=== PATIENT | male | born 1965 | race Caucasian/White ===

== ENCOUNTER 2022-06-17 17:08 | Observation (INO) | payer MEDICARE ==
--- NOTE | 2022-06-17 17:43 | ERPHSYRPT ---
- History of Present Illness Source: patient Exam Limitations: no limitations Patient Subjective Stated Complaint: pt here for a left ankle injury, hes states the ladder gave way and he landed on feet,form about 6 foot, Triage Nursing Assessment: pt alert, resp easy, skin w/d/p.iv to left ac, had pain meds in ambulance. skin w/d/p, eat last at 1430. has deformity to left ankle , strong pedal pulse, nailbeds pink Method of Injury: fell, twisted Occurred: just prior to arrival Quality: throbbing Severity of Pain-Max: severe Severity of Pain-Current: mild Lower Extremities Pain: ankle: left (Swelling and deformity of the left ankle neurovascular tendon are intact) Hx Tetanus, Diphtheria Vaccination/Date Given: No Hx Influenza Vaccination/Date Given: No Hx Pneumococcal Vaccination/Date Given: No Immunizations Up to Date: Yes <MADDY RAO - Last Filed: 06/17/22 18:41> <ARIANNE BAH - Last Filed: 06/17/22 22:40> - History of Present Illness Time Seen by Provider: 06/17/22 17:25 Physician History: Patient is a 56-year-old white male who was on a approximately 10 foot ladder when he fell off and landed on both feet causing his left ankle to twist and invert. He was given 200 mcg of fentanyl I V by EMS for his pain. He denies any other pain or loss of consciousness. Later during his exam he did complain of some low back pain which has been chronic with him. His is encouraging him to have a CT of his lumbar spine. (MADDY RAO) Allergies/Adverse Reactions: carisoprodol [From Soma] Allergy (Verified 06/17/22 17:13) morphine Allergy (Verified 06/17/22 17:13) Home Medications: Amlodipine Besylate 5 mg [Norvasc 5 mg] 5 mg PO DAILY 06/17/22 [History] Gabapentin 800 mg PO QID 06/17/22 [History] Lovastatin [Altoprev] 40 mg PO DAILY 06/17/22 [History] Metformin HCl 500 mg [Glucophage 500 MG] 500 mg PO BIDWM 06/17/22 [Hi story] Metoprolol Succinate 50 mg [Toprol Xl 50 MG] 50 mg PO DAILY 06/17/22 [History] Nortriptyline HCl [Pamelor] 50 mg PO DAILY 06/17/22 [History] Orphenadrine Citrate 100 mg [Norflex 100 MG Tablet] 1 ea DAILY 06/17/22 [History] Travel Risk - International Travel Have you traveled outside of the country in past 3 weeks: No - Coronavirus Screening Are you exhibiting any of the following symptoms?: No Close contact with a COVID-19 positive Pt in past 14-21 Days: No - Vaccine Status Have you recieved a Covid-19 vaccination: Yes [employer] Products: Moderna - Vaccination Dates Date of 2cond Vaccination (if applicable): 2020 <MADDY RAO - Last Filed: 06/17/22 18:41> - Review of Systems Constitutional: No Fever, No Chills Eyes: No Symptoms Ears, Nose, & Throat: No Symptoms Respiratory: No Cough, No Dyspnea Cardiac: No Chest Pain, No Edema, No Syncope Abdominal/Gastrointestinal: No Abdominal Pain, No Nausea, No Vomiting, No Diarrhea Genitourinary Symptoms: No Dysuria Musculoskeletal: No Back Pain, No Neck Pain Skin: No Rash Neurological: No Dizziness, No Focal Weakness, No Sensory Changes Psychological: No Symptoms Endocrine: No Symptoms All Other Systems: Reviewed and Negative <MADDY RAO - Last Filed: 06/17/22 18:41> - Past Medical History Pertinent Past Medical History: Yes Cardiac History: Hypertension Endocrine Medical History: Diabetes Type II - Past Surgical History Past Surgical History: Yes Musculoskeletal: Orthopedic Surgery Other Surgical History: back surgery - Social History Smoking Status: Never smoker Exposure to second hand smoke: No Drug Use: none Patient Lives Alone: No <MADDY RAO - Last Filed: 06/17/22 18:41> - Physical Exam General Appearance: mild distress Eyes, Ears, Nose, Throat Exam: moist mucous membranes Neck Exam: non-tender, supple Cardiovascular/Respiratory Exam: chest non-tender, normal breath sounds, regular rate/rhythm, no respiratory distress Gastrointestinal/Abdominal Exam: non-tender, guarding Back Exam: normal inspection, No vertebral tenderness Hips Exam: bilateral: non-tender, normal inspection, normal range of motion Legs Exam: bilateral leg: non-tender, normal inspection, normal range of motion Knees Exam: bilateral knee: non-tender, normal inspection, normal range of motion Ankle Exam: left ankle: bone tenderness, deformity, joint effusion, limited range of motion, pain, soft tissue tenderness, swelling Foot Exam: bilateral foot: non-tender, normal inspection, normal range of mo tion, no evidence of injury Neuro/Tendon Exam: normal sensation, normal motor functions, no evidence tendon injury Mental Status Exam: alert, oriented x 3, cooperative Skin Exam: normal color, warm, dry SpO2 Interpretation: normal SpO2: 94 O2 Delivery: Room Air <MADDY RAO Last Filed: 06/17/22 18:41> - Nursing Vital Signs Nursing Vital Signs: Initial Vital Signs Temperature 97.2 F 06/17/22 17:16 Pulse Rate 84 06/17/22 17:16 Respiratory Rate 18 06/17/22 17:16 Blood Pressure 131/110 06/17/22 17:16 O2 Sat by Pulse Oximetry 94 L 06/17/22 17:16 Pain Scale Pain Intensity 8 Procedures - Splinting Time of Procedure: 17:42 Location of Splint: Left, Ankle Type of Splint: Orthoglass Short Arm Splint Splint Applied By: ED Physician Pre-Proc Neuro Vasc Exam: normal Post-Proc Neuro Vasc Exam: neurovascular intact <MADDY RAO Last Filed: 06/17/22 18:41> - Course Nursing assessment & vital signs reviewed: Yes - Radiology Exams Left Ankle X-ray Interpretation: Interpreted by me (There is a fracture and displacement of the medial malleolus and there is a longitudinal splintering and can become mutation in the distal fibula the ankle mortise is disrupted.) <MADDY RAO Last Filed: 06/17/22 18:41> Ordered Tests: Active Orders 24 hr Category Date Time Status Bedrest ROUTINE Activity 06/17/22 21:55 Active Code Status Order ROUTINE Care 06/17/22 21:55 Active IV Care Q6H Care 06/17/22 21:55 Active Neuro Checks Q4H Care 06/17/22 21:[address] in Observation ROUTINE Care 06/17/22 21:55 Active Telemetry q6h Care 06/17/22 21:55 Active NPO Diet 06/17/22 21:56 Active ANKLE (3 VIEWS) Stat Exams 06/17/22 17:13 Taken LOWER EXTREMITY WO CONTRAST [CT] Stat Exams 06/17/22 17:36 Taken LUMBAR SPINE W/O [CT] Stat Exams 06/17/22 18:39 Taken CBC W DIFF AM.LAB Lab 06/18/22 04:00 Ordered CBC W DIFF Stat Lab 06/17/22 21:34 Completed CMP AM.LAB Lab 06/18/22 04:00 Ordered CMP Stat Lab 06/17/22 21:34 Completed UA W/RFX CULTURE Stat Lab 06/17/22 Ordered Pulse Oximetry CONTINUOUS RT 06/17/22 21:55 Active Transfer Order Routine Transfer 06/17/22 Completed Medication Summary Generic Name Dose Route Start Last Admin Trade Name Gunjan PRN Reason Stop Dose Admin Hydromorphone HCl 0.5 mg 06/17/22 21:55 Hydromorphone 1 Mg/1ml Inj 1 Mg/Ml Syringe IV 06/22/22 21:54 Q4H PRN PRN PAIN Sodium Chloride 1,000 mls @ 100 mls/hr 06/17/22 21:55 Sodium Chloride 0.9% 1000 Ml IV 07/17/22 21:54 .Q10H JASON Cefazolin Sodium/Dextrose 1 gm in 50 mls @ 100 mls/hr 06/17/22 22:00 Kefzol 1 Gm/50 Ml Premix IV 06/20/22 21:59 Q8HT JASON Ondansetron HCl 4 mg 06/17/22 21:55 Ondansetron Hcl 4 Mg/2 Ml Vial IV 07/17/22 21:54 Q6H PRN PRN NAUSEA/VOMITING Discontinued Medications Generic Name Dose Route Start Last Admin Trade Name Gunjan PRN Reason Stop Dose Admin Fentanyl Citrate 50 mcg 06/17/22 17:49 06/17/22 17:56 Fentanyl Citrate 100 Mcg/2 Ml* Vial IV 06/17/22 17:50 50 mcg STAT ONE Administration Fentanyl Citrate Confirm 06/17/22 17:55 Fentanyl Citrate 100 Mcg/2 Ml* Vial Administered 06/17/22 17:56 Dose 100 mcg .ROUTE .STK-MED ONE Hydromorphone HCl 0.5 mg 06/17/22 21:09 06/17/22 21:15 Hydromorphone 1 Mg/1ml Inj 1 Mg/Ml Syringe IV 06/17/22 21:10 0.5 mg STAT ONE Administration Hydromorphone HCl Confirm 06/17/22 21:13 Hydromorphone 1 Mg/1ml Inj 1 Mg/Ml Syringe Administered 06/17/22 21:14 Dose 1 mg .ROUTE .STK-MED ONE Cefazolin Sodium/Dextrose 1 gm in 50 mls @ 100 mls/hr 06/17/22 21:15 Kefzol 1 Gm/50 Ml Premix IV 06/17/22 21:44 STAT STA Lab/Rad Data: Laboratory Result Diagrams 06/17/22 21:34 06/17/22 21:34 Laboratory Results 06/17/22 06/17/22 06/17/22 Range/Units 21:34 21:34 19:55 WBC 13.0 H (4.0-10.5) x10^3/uL RBC 4.74 (4.1-5.6) x10^6/uL Hgb 14.7 (12.5-18.0) g/dL Hct 43.2 (42-50) % MCV 91.1 (78-100) fL MCH 31.0 (26-32) pg MCHC 34.0 (32-36) g/dL RDW 12.3 (11.5-14.0) % Plt Count 258 (150-450) x10^3/uL MPV 9.1 (7.5-11.0) fL Gran % 75.5 H (36.0-66.0) % Immature Gran % (Auto) 0.5 H (0.00-0.4) % Nucleat RBC Rel Count 0.0 (0.00-0.1) % Eos # (Auto) 0.40 (0-0.5) x10^3/uL Immature Gran # (Auto) 0.07 H (0.00-0.03) x10^3u/L Absolute Lymphs (auto) 1.86 (1.0-4.6) x10^3/uL Absolute Monos (auto) 0.78 (0.0-1.3) x10^3/uL Absolute Nucleated RBC 0.00 (0.00-0.01) x10^3u/L Lymphocytes % 14.3 L (24.0-44.0) % Monocytes % 6.0 (0.0-12.0) % Eosinophils % 3.1 (0.00-5.0) % Basophils % 0.6 (0.0-0.4) % Absolute Granulocytes 9.82 H (1.4-6.9) x10^3/uL Basophils # 0.08 (0-0.4) x10^3/uL Sodium 137 (137-145) mmol/L Potassium 3.8 (3.5-5.1) mmol/L Chloride 100 (98-107) mmol/L Carbon Dioxide 27 (22-30) mmol/L Anion Gap 13.1 (5-15) MEQ/L BUN 9 (9-20) mg/dL Creatinine 0.68 (0.66-1.25) mg/dL Estimated GFR > 60.0 ML/MIN Glucose 152 H (74-106) mg/dL Calcium 8.9 (8.4-10.2) mg/dL Total Bilirubin 1.00 (0.2-1.3) mg/dL AST 25 (17-59) U/L ALT 24 (0-50) U/L Alkaline Phosphatase 80 (38-126) U/L Serum Total Protein 8.0 (6.3-8.2) g/dL Albumin 4.8 (3.5-5.0) g/dL Influenza Type A Ag NEGATIVE (NEGATIVE) Influenza Type B Ag NEGATIVE (NEGATIVE) RSV (PCR) NEGATIVE (Negative) SARS-CoV-2 (PCR) NEGATIVE (NEGATIVE) - Progress Progress: improved Discussed with DrManuel: Other (Dr. Swartz was consulted he reviewed the films remotely and asked that we obtain a CT of the fractured area and that the splint should be applied no weightbearing patient to be seen in his office tomorrow morning.) <MADDY RAO - Last Filed: 06/17/22 18:41> - Progress Discussed with DrManuel: Francine Counseled pt/family regarding: lab results, diagnosis, rad results <ARIANNE BAH - Last Filed: 06/17/22 22:40> - Progress Progress Note: Patient endorsed Dr. Bah at approximately 7 PM. CAT scans pending. Due to the severity of patient's ankle injury patient will be admitted for pain control and preoperative clearance. Dr. Rao saw patient initially. He has already spoken to our tap dancer who will repair the fracture. Plan of care discussed with patient. He agrees to admission [facility] for further evaluation and treatment. CT left lower extremity without contrast reveals a trimalleolar fracture with lateral subluxation/dislocation of the talus relative to the ankle. This is most likely unstable. Syndesmotic injury is possible. There are tiny foci of gas in the ankle joint. Please exclude open fracture clinically. CT scan of the lumbar spine without contrast reveals no acute fracture or malalignment of the lumbar spine. There is some degenerative changes of L3-L4 mild spinal stenosis. Arteries demonstrate mild atherosclerotic disease. Soft tissues are unremarkable. CT scan report of ankle suggest that there is a foci of gas in the ankle joint. Advised to exclude open fracture. We took the dressing down to assure that there is no open fracture. No open or broken skin was observed. However because of this finding we will treat patient with a dose of Ancef proactively. Case discussed with Dr. Lee our service doctor for the night. Dr. Lee accepts admission. COVID test negative. Patient received a dose of Dilaudid for pain control prior to transfer to floor Portions of this note were created with voice recognition technology. There may be grammatical, spelling, punctuation or sound alike errors 06/17/22 19:43 Tetanus is up-to-date 06/17/22 21:14 06/17/22 21:20 (ARIANNE BAH) - Departure Departure Disposition: Home Critical Care Time: No <MADDY RAO - Last Filed: 06/17/22 18:41> <ARIANNE BAH - Last Filed: 06/17/22 22:40> - Departure Clinical Impression: Fracture dislocation of left ankle, Acute exacerbation of chronic low back pain Condition: Stable
[2022-06-17] MEDS ORDERED: SUBLIMAZE 100 MCG/2 ML IV ONE (17:49)
[2022-06-17] MEDS ORDERED: SUBLIMAZE 100 MCG/2 ML ONE (17:55)
[2022-06-17 20:46] LABS: INFLUENZA A NEGATIVE (NEGATIVE); INFLUENZA B NEGATIVE (NEGATIVE); RESPIRATORY SYNCTIAL VIRUS NEGATIVE (Negative); SARS-CoV-2 Xpert Express NEGATIVE (NEGATIVE)
[2022-06-17] MEDS ORDERED: Hydromorphone 1 mg/ml Injection IV ONE (21:09)
[2022-06-17] MEDS ORDERED: Hydromorphone 1 mg/ml Injection ONE (21:13)
[2022-06-17] MEDS ORDERED: KEFZOL 1 GM/50 ML PREMIX** 1 GM/50 ML IVPB IV STA (21:15)
[2022-06-17 21:36] LABS: Absolute Neutrophil Ct (ANC) 9.82 x10^3/uL (1.4-6.9); Basophil (Absolute #) 0.08 x10^3/uL (0-0.4); Eosinophil % 3.1 % (0.00-5.0); Hematocrit 43.2 % (42-50); Hemoglobin 14.7 g/dL (12.5-18.0); Lymphocyte (Absolute #) 1.86 x10^3/uL (1.0-4.6); Lymphocytes % 14.3 % (24.0-44.0); Mean Cell Volume 91.1 fL (78-100); Mean Platelet Volume 9.1 fL (7.5-11.0); Monocyte (Absolute #) 0.78 x10^3/uL (0.0-1.3); Neutrophil % 75.5 % (36.0-66.0); Platelet Count 258 x10^3/uL (150-450); Red Blood Count 4.74 x10^6/uL (4.1-5.6); Red Cell Distribution Width 12.3 % (11.5-14.0)
[2022-06-17 21:53] LABS: ALBUMIN 4.8 g/dL (3.5-5.0); ALKALINE PHOSPHATASE 80 U/L (38-126); ANION GAP 13.1 MEQ/L (5-15); BLOOD UREA NITROGEN 9 mg/dL (9-20); CHLORIDE 100 mmol/L (98-107); Calcium 8.9 mg/dL (8.4-10.2); Carbon Dioxide 27 mmol/L (22-30); Creatinine 1 0.68 mg/dL (0.66-1.25); EST GLOMERULAR FILTRATION RATE > 60.0 ML/MIN; Glucose 152 mg/dL (74-106); Potassium 3.8 mmol/L (3.5-5.1); SGOT/AST 25 U/L (17-59); SGPT/ALT 24 U/L (0-50); SODIUM 137 mmol/L (137-145)
[2022-06-17] MEDS ORDERED: Hydromorphone 1 mg/ml Injection IV PRN (21:55)
[2022-06-17] MEDS ORDERED: Zofran 4 MG/2 ML VIAL IV PRN (21:55)
[2022-06-17] MEDS ORDERED: NON-FORMULARY ITEM (Lovastatin 40 MG) PO SCH (23:25)
[2022-06-17] MEDS: Hydromorphone 1 mg/ml Injection IV PRN (23:42)
[2022-06-17] MEDS: KEFZOL 1 GM/50 ML PREMIX** 1 GM/50 ML IVPB IV SCH (23:48)
[2022-06-17] MEDS: Sodium Chloride 0.9% 1000 ML 1,000 ML IV SCH (23:48)
[2022-06-17] MEDS: Toprol Xl 50 MG PO SCH (23:50)
[2022-06-17] MEDS: Neurontin PO SCH (23:50)
[2022-06-18] MEDS: Norflex 100 MG Tablet PO SCH ×2 (00:40→21:36)
[2022-06-18] MEDS: Hydromorphone 1 mg/ml Injection IV PRN ×6 (02:01→14:33)
[2022-06-18] MEDS ORDERED: TYLENOL 325 MG PO PRN (04:19)
[2022-06-18 04:27] LABS: Absolute Neutrophil Ct (ANC) 6.06 x10^3/uL (1.4-6.9); Basophil (Absolute #) 0.03 x10^3/uL (0-0.4); Eosinophil % 3.3 % (0.00-5.0); Hematocrit 38.5 % (42-50); Hemoglobin 13.3 g/dL (12.5-18.0); Lymphocyte (Absolute #) 1.88 x10^3/uL (1.0-4.6); Lymphocytes % 20.7 % (24.0-44.0); Mean Cell Volume 89.5 fL (78-100); Mean Corpuscular Hemoglobin 30.9 pg (26-32); Mean Corpuscular Hgb Concent. 34.5 g/dL (32-36); Mean Platelet Volume 8.9 fL (7.5-11.0); Monocyte (Absolute #) 0.76 x10^3/uL (0.0-1.3); Monocytes % 8.4 % (0.0-12.0); Neutrophil % 66.9 % (36.0-66.0); Platelet Count 241 x10^3/uL (150-450); Red Cell Distribution Width 12.4 % (11.5-14.0); White Blood Count 9.1 x10^3/uL (4.0-10.5)
[2022-06-18 04:43] LABS: ALBUMIN 4.4 g/dL (3.5-5.0); ALKALINE PHOSPHATASE 63 U/L (38-126); BLOOD UREA NITROGEN 8 mg/dL (9-20); CHLORIDE 99 mmol/L (98-107); Calcium 8.5 mg/dL (8.4-10.2); Carbon Dioxide 29 mmol/L (22-30); Creatinine 1 0.67 mg/dL (0.66-1.25); EST GLOMERULAR FILTRATION RATE > 60.0 ML/MIN; Glucose 158 mg/dL (74-106); Potassium 3.7 mmol/L (3.5-5.1); SGOT/AST 23 U/L (17-59); SGPT/ALT 22 U/L (0-50); SODIUM 135 mmol/L (137-145); Total Protein 7.2 g/dL (6.3-8.2)
[2022-06-18] MEDS: KEFZOL 1 GM/50 ML PREMIX** 1 GM/50 ML IVPB IV SCH ×3 (06:25→23:05)
[2022-06-18] MEDS: Toprol Xl 50 MG PO SCH ×2 (08:27→21:37)
[2022-06-18] MEDS: Neurontin PO SCH ×4 (09:09→21:36)
[2022-06-18] MEDS: PERCOCET TABLET 5/325MG PO PRN ×3 (09:09→21:36)
[2022-06-18] MEDS ORDERED: Lactated Ringers 1,000 ML IV SCH (11:00)
[2022-06-18] MEDS ORDERED: Reglan 10 MG/2 ML IV SCH (11:00)
[2022-06-18] MEDS ORDERED: Pepcid 20 MG VIAL IV SCH (11:00)
--- NOTE | 2022-06-18 11:19 | XRAY ---
Exam: 3 views of the left ankle from 06/17/2022. Comparison: [None.] Indication: 56-year-old male fell from ladder yesterday; complains of pain and swelling throughout lower left leg. Findings: AP, internal oblique, and lateral radiographs of the left ankle including the distal two thirds of the left tibia and fibula were obtained. There is a fracture-dislocation injury of the left ankle. A minimally comminuted fracture through the base of the medial malleolus is seen, the largest avulsed bony element measuring 2.6 cm x 1.5 cm in cross section, which is mildly displaced inferiorly and laterally with respect to the distal left tibia. The left ankle mortise is disrupted with the superior aspect of the talus displaced about 1.5 cm laterally with respect to the distal left tibia. The visualized left ankle mortise is significantly nonuniform. In addition, I believe there is a 2.1 cm x 1.0 cm bony element which appears to be avulsed from the posterior lateral margin of the distal left tibia on the steep internal oblique view. This is difficult to confirm on the lateral radiograph. There are also comminuted fractures of the distal left fibula shaft at 2 locations, one centered about 10.4 cm proximal to the left ankle mortise and the other centered about 6.3 cm proximal to the ankle mortise. Mild displacement and bone separation is evident at both of these fracture sites. There also appears to be a tiny avulsion fracture injury of the distal end of the left fibula. The left hindfoot appears grossly intact. Surrounding soft tissue swelling is evident about the distal left lower leg and left ankle. Impression: 1. Significant fracture-dislocation injury of the left ankle, as discussed above. Surrounding soft tissue swelling is evident.
[2022-06-18] MEDS ORDERED: Hydromorphone 1 mg/ml Injection IV ONE (11:20)
[2022-06-18] MEDS ORDERED: SUBLIMAZE 100 MCG/2 ML ONE (11:49)
[2022-06-18] MEDS ORDERED: Quelicin Fliptop 200 MG/10 ML ONE (11:49)
[2022-06-18] MEDS ORDERED: Decadron 4 MG INJ ONE (11:49)
[2022-06-18] MEDS ORDERED: Xylocaine-Mpf 2% 5 Ml Vial ONE (11:49)
[2022-06-18] MEDS ORDERED: Zofran 4 MG/2 ML VIAL ONE (11:49)
[2022-06-18] MEDS ORDERED: DIPRIVAN 200 MG/20 ML IV ONE (11:49)
[2022-06-18] MEDS ORDERED: Naropin 0.5% 30 ML VIAL ONE (11:57)
[2022-06-18] MEDS ORDERED: Versed 2 MG/2 ML Injection ONE (11:59)
[2022-06-18] MEDS ORDERED: Pre-Attached Lta Kit TP ONE (12:28)
[2022-06-18] MEDS ORDERED: Lactated Ringers 1,000 ML IV ONE (12:46)
[2022-06-18] MEDS ORDERED: Ephedrine Sulfate 50 MG/ML ONE (13:09)
[2022-06-18] MEDS ORDERED: PHENYLEPHRINE HCL ONE (13:13)
[2022-06-18] MEDS ORDERED: TORAdol 30 mg Injection ONE (13:21)
--- NOTE | 2022-06-18 14:53 | XRAY ---
Exam: CT of the distal left lower extremity without IV contrast from 06/17/2022. CTDI: 28.07 mGy Comparison: Left ankle radiographs from 06/17/2022. Indication: 56-year-old male fell approximately 6 feet from a ladder today with x-ray proven fractures of the distal left tibia and fibula. The patient complains of pain and swelling of the distal left lower leg and ankle. The patient has been splinted, stabilizing the distal left lower extremity during imaging. Technique: Non-IV contrast axial images were obtained from the proximal left calf down through the left hindfoot. Reconstructed coronal and sagittal images were created and reviewed. Findings: The AP CT research test engine evaluator image reveals disruption of the tibiotalar joint with lateral dislocation of the left talus with respect to the plafond of the distal left tibia. There is downward sloping of the superior articular surface of the left talus toward the medial side. The CT images confirm moderate lateral dislocation of the talus with respect to the distal left tibia. A moderately displaced and mildly comminuted fracture of the medial malleolus is seen. In addition, there is a mildly comminuted acute fracture through the posterior lateral aspect of the distal left tibia with mild/moderate displacement/separation. There are also multiple predominantly obliquely oriented, mildly comminuted, and mildly displaced fractures involving the distal left fibular shaft. There is minimal anterior tilting of some of the comminuted fractured elements on the sagittal images above the left ankle joint. I also note a tiny cortical avulsion fracture injury of the distal left fibular tip. There are tiny foci of soft tissue air density seen at the posterior aspect of the left ankle joint and soft tissues just posterior to the left ankle joint. I see no obvious reason to explain this. Please exclude an open fracture clinically. Moderate superficial soft tissue hematomas are noted about the left ankle. An os trigonum is seen posterior to the talus. I see no obvious fracture within the visualized left hindfoot. Impression: 1. Comminuted, displaced trimalleolar fracture of the left ankle and distal left fibula shaft with lateral dislocation of the talus relative to the plafond of the distal left tibia. Syndesmotic injury at the level of the interosseous membrane is possible. 2. There are tiny foci of gas density at the posterior aspect of the left ankle joint and within the soft tissues just posterior to the left ankle joint. Correlate clinically to exclude an open fracture.
--- NOTE | 2022-06-18 15:09 | XRAY ---
Exam: C-arm images of the left ankle from 06/18/2022. Comparison: 3 view left ankle series from 06/17/2022. Indication: X-ray proven trimalleolar fracture-dislocation of left ankle after patient fell from a ladder. The exam is being performed for external fixation of the left ankle. Findings: 64 seconds of fluoroscopy time was utilized intraoperatively. 11 intraoperative C-arm images were obtained. External stabilization of the left ankle was accomplished with a couple proximal threaded screws extending through the mid left tibia shaft. Also, a threaded screw is seen traversing the posterior left calcaneus. The tibiotalar dislocation has been reduced, although the joint space appears diffusely prominent. I again note a mildly displaced transverse fracture fragment at the level of the base of the medial malleolus. Numerous oblique, mildly displaced/ fractures of the distal left fibula shaft are again seen. Overall alignment and position of the distal left fibula appear improved. I also note widening of the anterior aspect of the tibiotalar joint on the lateral C-arm image at this level. Impression: 1. Status post external stabilization of trimalleolar/dislocation of left ankle, as discussed above.
--- NOTE | 2022-06-18 15:37 | XRAY ---
Exam: CT of the lumbar spine without IV contrast from 06/17/2022. CTDI: 24.70 mGy Comparison: [None.] Indication: 56-year-old male fell approximately 6 feet from a ladder. He complains of low back pain following the fall. Technique: Non-IV contrast axial images were obtained from the lower aspect of T11 down to the upper mid sacrum. Reconstructed coronal and sagittal images were created and reviewed. Findings: There is evidence of prior L4-L5 laminectomy with L4-S1 bony fusion without metallic orthopedic hardware. This is unchanged from a CT of the abdomen from 09/04/2008. I see no evidence of acute lumbar spine fracture or AP subluxation. L4-L5 and L5-S1 interspaces reveal sequela of prior fusion surgery. The upper 3 lumbar interspace heights are well-maintained. Some small vertebral endplate spurs are seen within the upper lumbar spine. There is minimal diffuse bulging of both the L2-L3 and L3-L4 discs. The axial and sagittal images suggest a slight central canal spinal stenosis which appears to be due to degenerative changes. Mild arteriosclerotic vascular calcification is seen within a mildly tortuous abdominal aorta and iliac arteries. The remainder of the soft tissues appears unremarkable. Moderate focal degenerative change is seen at the upper posterior margin of the right sacroiliac joint. The lumbar facet joints appear essentially unremarkable. I do not see any significant compromise upon the lumbar lateral neural foramen. No other acute osseous process is seen. Impression: 1. No acute lumbar spine fracture or AP subluxation is seen. 2. The patient is status post L4-L5 laminectomy and L4-S1 bony fusion. This is unchanged from a CT of the abdomen from 09/04/2008. 3. Minimal circumferential bulging of the L2-L3 and L3-L4 discs with questionable slight relative central canal stenosis at L3-L4.
[2022-06-18] MEDS: Sodium Chloride 0.9% 1000 ML 1,000 ML IV SCH (16:09)
--- NOTE | 2022-06-18 16:26 | PCM.CONS ---
Podiatry HPI - Consult Date of Consultation Date: 06/18/22 Reason for Consult: high energy Trimalleolar fracture left ankle Consulting Provider: SYL PATEL DPM - [facility] History of Present Illness: Of is a very pleasant 56-year-old male who presents to the emergency room last night for an injury to his left ankle after having fallen off of a ladder. X- rays were taken demonstrating trimalleolar fracture. Shortly thereafter patient developed some fracture blisters to the medial lateral aspects of the ankle. He has a significant amount of pain and the emergency department physician and was admitted for observation. Patient seen at bedside this morning n.p.o. in a significant amount of pain which has barely been managed overnight. He does have palpable pulses at this time to the DP and the PT he currently denies any constitutional symptoms of infection. He denies any other pedal complaints at this time Medications & Allergies Home Medications: Home Medication List Amlodipine Besylate 5 mg [Norvasc 5 mg] 5 mg PO DAILY 06/17/22 [History Confirmed 06/17/22] Gabapentin 800 mg PO QID 06/17/22 [History Confirmed 06/17/22] Lovastatin [Altoprev] 40 mg PO HS 06/17/22 [History Confirmed 06/18/22] Metformin HCl 500 mg [Glucophage 500 MG] 500 mg PO BIDWM 06/17/22 [History Confirmed 06/17/22] Metoprolol Succinate 50 mg [Toprol Xl 50 MG] 50 mg PO BID 06/17/22 [History Confirmed 06/18/22] Nortriptyline HCl [Pamelor] 50 mg PO DAILY 06/17/22 [History Confirmed 06/17/22] Orphenadrine Citrate 100 mg [Norflex 100 MG Tablet] 1 ea HS 06/17/22 [History Confirmed 06/18/22] Allergies/Adverse Reactions: Allergies Allergy/AdvReac Type Severity Reaction Status Date / Time carisoprodol [From Soma] Allergy Verified 06/17/22 17:13 morphine Allergy Verified 06/17/22 17:13 - Past Medical History Past Medical History: Yes Neurological History: Seizures ENT History: No Pertinent History Cardiac History: High Cholesterol, Hypertension Respiratory History: No Pertinent History Endocrine Medical History: Diabetes Type II Musculoskelatal History: No Pertinent History GI Medical History: No Pertinent History History: No Pertinent History Pyscho-Social History: No Pertinent History Male Reproductive Disorders: No Pertinent History Comment: had 1 seizue in the past due to a medication, has not had anymore since stopping the medication - Past Surgical History Past Surgical History: Yes Cardiac History: No Pertinent History Respiratory Surgery: No Pertinent History GI Surgical History: No Pertinent History Genitourinary Surgical Hx: No Pertinent History Musculskeletal Surgical Hx: Orthopedic Surgery Male Surgical History: No Pertinent History Other Surgical History: back surgery , spinal fusion - Social History Smoking Status: Never smoker Exposure to second hand smoke: Yes Alcohol: None Drug Use: none Physical Exam - General General Appearance: moderate distress - Neuro Neurologic: Epicritic and protopathic - Vascular Peripheral Pulses: Posterior tibialis: 2+, Dorsalis-Pedis: 2+ Capillary Refill Time: < 3 seconds Hair Growth: Symmetrical and Bilateral Varicosities: Negtive Edema: Non-pitting Edema Degree: 2+ Skin: Supple, not atrophic (Fracture blisters noted to the medal and lateral aspect of left ankle non hemorrhagic) - Narrative Narrative Physical Exam: Podiatry Physical Exam Results - Labs Lab/Micro Results: Lab Results-Last 24 Hours 06/17/22 06/17/22 06/17/22 Range/Units 19:55 21:34 21:34 WBC 13.0 H (4.0-10.5) x10^3/uL RBC 4.74 (4.1-5.6) x10^6/uL Hgb 14.7 (12.5-18.0) g/dL Hct 43.2 (42-50) % MCV 91.1 (78-100) fL MCH 31.0 (26-32) pg MCHC 34.0 (32-36) g/dL RDW 12.3 (11.5-14.0) % Plt Count 258 (150-450) x10^3/uL MPV 9.1 (7.5-11.0) fL Gran % 75.5 H (36.0-66.0) % Immature Gran % (Auto) 0.5 H (0.00-0.4) % Nucleat RBC Rel Count 0.0 (0.00-0.1) % Eos # (Auto) 0.40 (0-0.5) x10^3/uL Immature Gran # (Auto) 0.07 H (0.00-0.03) x10^3u/L Absolute Lymphs (auto) 1.86 (1.0-4.6) x10^3/uL Absolute Monos (auto) 0.78 (0.0-1.3) x10^3/uL Absolute Nucleated RBC 0.00 (0.00-0.01) x10^3u/L Lymphocytes % 14.3 L (24.0-44.0) % Monocytes % 6.0 (0.0-12.0) % Eosinophils % 3.1 (0.00-5.0) % Basophils % 0.6 (0.0-0.4) % Absolute Granulocytes 9.82 H (1.4-6.9) x10^3/uL Basophils # 0.08 (0-0.4) x10^3/uL Sodium 137 (137-145) mmol/L Potassium 3.8 (3.5-5.1) mmol/L Chloride 100 (98-107) mmol/L Carbon Dioxide 27 (22-30) mmol/L Anion Gap 13.1 (5-15) MEQ/L BUN 9 (9-20) mg/dL Creatinine 0.68 (0.66-1.25) mg/dL Estimated GFR > 60.0 ML/MIN Glucose 152 H (74-106) mg/dL POC Glucometer (74 to 106) mg/dL Calcium 8.9 (8.4-10.2) mg/dL Total Bilirubin 1.00 (0.2-1.3) mg/dL AST 25 (17-59) U/L ALT 24 (0-50) U/L Alkaline Phosphatase 80 (38-126) U/L Serum Total Protein 8.0 (6.3-8.2) g/dL Albumin 4.8 (3.5-5.0) g/dL Influenza Type A Ag NEGATIVE (NEGATIVE) Influenza Type B Ag NEGATIVE (NEGATIVE) RSV (PCR) NEGATIVE (Negative) SARS-CoV-2 (PCR) NEGATIVE (NEGATIVE) 06/18/22 06/18/22 06/18/22 Range/Units 04:26 04:26 07:32 WBC 9.1 (4.0-10.5) x10^3/uL RBC 4.30 (4.1-5.6) x10^6/uL Hgb 13.3 (12.5-18.0) g/dL Hct 38.5 L (42-50) % MCV 89.5 (78-100) fL MCH 30.9 (26-32) pg MCHC 34.5 (32-36) g/dL RDW 12.4 (11.5-14.0) % Plt Count 241 (150-450) x10^3/uL MPV 8.9 (7.5-11.0) fL Gran % 66.9 H (36.0-66.0) % Immature Gran % (Auto) 0.4 (0.00-0.4) % Nucleat RBC Rel Count 0.0 (0.00-0.1) % Eos # (Auto) 0.30 (0-0.5) x10^3/uL Immature Gran # (Auto) 0.04 H (0.00-0.03) x10^3u/L Absolute Lymphs (auto) 1.88 (1.0-4.6) x10^3/uL Absolute Monos (auto) 0.76 (0.0-1.3) x10^3/uL Absolute Nucleated RBC 0.00 (0.00-0.01) x10^3u/L Lymphocytes % 20.7 L (24.0-44.0) % Monocytes % 8.4 (0.0-12.0) % Eosinophils % 3.3 (0.00-5.0) % Basophils % 0.3 (0.0-0.4) % Absolute Granulocytes 6.06 (1.4-6.9) x10^3/uL Basophils # 0.03 (0-0.4) x10^3/uL Sodium 135 L (137-145) mmol/L Potassium 3.7 (3.5-5.1) mmol/L Chloride 99 (98-107) mmol/L Carbon Dioxide 29 (22-30) mmol/L Anion Gap 10.0 (5-15) MEQ/L BUN 8 L (9-20) mg/dL Creatinine 0.67 (0.66-1.25) mg/dL Estimated GFR > 60.0 ML/MIN Glucose 158 H (74-106) mg/dL POC Glucometer 106 (74 to 106) mg/dL Calcium 8.5 (8.4-10.2) mg/dL Total Bilirubin 0.90 (0.2-1.3) mg/dL AST 23 (17-59) U/L ALT 22 (0-50) U/L Alkaline Phosphatase 63 (38-126) U/L Serum Total Protein 7.2 (6.3-8.2) g/dL Albumin 4.4 (3.5-5.0) g/dL Influenza Type A Ag (NEGATIVE) Influenza Type B Ag (NEGATIVE) RSV (PCR) (Negative) SARS-CoV-2 (PCR) (NEGATIVE) 06/18/22 Range/Units 11:34 WBC (4.0-10.5) x10^3/uL RBC (4.1-5.6) x10^6/uL Hgb (12.5-18.0) g/dL Hct (42-50) % MCV (78-100) fL MCH (26-32) pg MCHC (32-36) g/dL RDW (11.5-14.0) % Plt Count (150-450) x10^3/uL MPV (7.5-11.0) fL Gran % (36.0-66.0) % Immature Gran % (Auto) (0.00-0.4) % Nucleat RBC Rel Count (0.00-0.1) % Eos # (Auto) (0-0.5) x10^3/uL Immature Gran # (Auto) (0.00-0.03) x10^3u/L Absolute Lymphs (auto) (1.0-4.6) x10^3/uL Absolute Monos (auto) (0.0-1.3) x10^3/uL Absolute Nucleated RBC (0.00-0.01) x10^3u/L Lymphocytes % (24.0-44.0) % Monocytes % (0.0-12.0) % Eosinophils % (0.00-5.0) % Basophils % (0.0-0.4) % Absolute Granulocytes (1.4-6.9) x10^3/uL Basophils # (0-0.4) x10^3/uL Sodium (137-145) mmol/L Potassium (3.5-5.1) mmol/L Chloride (98-107) mmol/L Carbon Dioxide (22-30) mmol/L Anion Gap (5-15) MEQ/L BUN (9-20) mg/dL Creatinine (0.66-1.25) mg/dL Estimated GFR ML/MIN Glucose (74-106) mg/dL POC Glucometer 144 H (74 to 106) mg/dL Calcium (8.4-10.2) mg/dL Total Bilirubin (0.2-1.3) mg/dL AST (17-59) U/L ALT (0-50) U/L Alkaline Phosphatase (38-126) U/L Serum Total Protein (6.3-8.2) g/dL Albumin (3.5-5.0) g/dL Influenza Type A Ag (NEGATIVE) Influenza Type B Ag (NEGATIVE) RSV (PCR) (Negative) SARS-CoV-2 (PCR) (NEGATIVE) Accuchecks Date 06/18/22 Date 06/18/22 Time 11:36 Time 07:40 - Radiology Impressions Radiology Exams & Impressions: Radiology Procedures Category Date Time Status PABLITO/SEG PRESSURE UNILAT [US] Urgent Exams 06/18/22 15:44 Taken ANKLE (2V) Routine Exams 06/18/22 11:32 Completed ANKLE (3 VIEWS) Stat Exams 06/17/22 17:13 Completed ARTERIAL BILAT LOWER EXTREMITY [US] Urgent Exams 06/18/22 14:43 Taken FLUOROSCOPY UP TO 1 HR Routine Exams 06/18/22 11:32 Taken LOWER EXTREMITY WO CONTRAST [CT] Stat Exams 06/17/22 17:36 Completed LUMBAR SPINE W/O [CT] Stat Exams 06/17/22 18:39 Completed - Other Procedures and Tests Respiratory Therapy 06/18/22 14:25 Incentive Spirometry UD Assessment/Plan (1) Trimalleolar fracture of ankle, closed Current Visit: Yes Status: Acute Assessment & Plan: Initial patient examination and evaluation Radiographs reviewed and discussed with patient Will delay definitive procedure for fracture blisters to resolve Plan for Spanning of fracture site in this time with delta frame NPO Plan for OR today and pain contol overnight If pain controlled can proceed with definite fixation once fracture blisters resolve Return to office on thursday next week for reassessment of skin Plan for OR on thursday ORIF left ankle trimalleolar fracture Will follow closely Code(s): S82.853A - DISPLACED TRIMALLEOLAR FRACTURE OF UNSP LOWER LEG, INIT (2) Pain in left ankle and joints of left foot Current Visit: Yes Status: Acute Code(s): M25.572 - PAIN IN LEFT ANKLE AND JOINTS OF LEFT FOOT (3) Diabetes mellitus type II, non insulin dependent Current Visit: Yes Status: Acute Code(s): E11.9 - TYPE 2 DIABETES MELLITUS WITHOUT COMPLICATIONS (4) Fracture dislocation of left ankle Current Visit: Yes Status: Acute Code(s): S82.892A - OTH FRACTURE OF LEFT LOWER LEG, INIT FOR CLOS FX
--- NOTE | 2022-06-18 19:21 | XRAY ---
Exam: Bilateral lower extremity duplex Doppler arterial ultrasound from 06/18/2022. Comparison: [None.] Indication: 56-year-old male with severe left ankle injury requiring repair. Technique: Cruz scale images, color blood flow images, and Doppler tracings were obtained of both lower extremity major arteries. Findings: On the right side, unremarkable color blood flow was seen within the major arteries. Peak systolic flow velocities in centimeters per second measured 47.1 within the common femoral artery, 95.2, 75.8, and 42.7 within the proximal, mid, and distal superficial femoral artery, 41.6 within the deep femoral artery, 60.5 within the popliteal artery, 112.2 within the distal posterior tibial artery, and 73.5 within the dorsalis pedis artery. Doppler waveforms were triphasic throughout the right lower extremity. On the left side, the technologist was unable to image the distal posterior tibial artery or dorsalis pedis artery due to external fixation surgery performed today for a severe left ankle fracture/dislocation injury. Color-flow imaging from the left common femoral artery through the popliteal artery appeared unremarkable. Peak systolic flow velocities in centimeters per second measured 83.8 within the common femoral artery, 51.6 within the deep femoral artery, 100.0, 87.0, and 74.1 within the proximal, mid, and distal superficial femoral artery, and 93.5 within the popliteal artery. Doppler waveforms appeared triphasic within the common femoral artery and popliteal artery. The Doppler waveforms appeared biphasic within the left deep femoral artery and the left superficial femoral artery. Impression: 1. The lower extremity Doppler arterial ultrasound is limited in that imaging of the distal left posterior tibial artery or left dorsalis pedis artery was not possible due external fixation surgery for a severe fracture/dislocation injury of the left ankle today. 2. Otherwise, the duplex Doppler arterial ultrasound exam of the major right lower extremity arteries, and left common femoral artery through left popliteal artery appears essentially unremarkable.
--- NOTE | 2022-06-18 19:29 | XRAY ---
Exam: ABIs/segmental pressures of the right lower extremity from 06/18/2022. Comparison: [None.] Indication: Left ankle injury requiring surgical repair. Findings: Right brachial arterial pressure was 163 mmHg. The blood bank technologist told me that she was unable to occlude the distal right posterior tibial artery, dorsalis pedis artery, or great toe artery to obtain segmental pressures at these sites. Therefore, an ankle-brachial index on the right is unable to be ascertained. The left side was not done because the patient had external fixation surgery today for a severe left ankle fracture-dislocation. Impression: 1. Nondiagnostic ankle-brachial index on the right due to inability to occlude the distal right posterior tibial artery, dorsalis pedis artery, or artery within the great toe.
--- NOTE | 2022-06-18 20:02 | XRAY ---
64 seconds fluoroscopy time in surgery for application of external fixation device left ankle.
[2022-06-18] MEDS ORDERED: ZOCOR 20MG PO SCH (22:00)
[2022-06-19] MEDS: PERCOCET TABLET 5/325MG PO PRN ×3 (02:34→12:04)
[2022-06-19] MEDS: Sodium Chloride 0.9% 1000 ML 1,000 ML IV SCH (02:36)
[2022-06-19] MEDS: KEFZOL 1 GM/50 ML PREMIX** 1 GM/50 ML IVPB IV SCH (05:54)
[2022-06-19 07:26] LABS: Hemoglobin 10.8 g/dL (12.5-18.0); Mean Cell Volume 92.2 fL (78-100); Mean Corpuscular Hemoglobin 31.1 pg (26-32); Mean Corpuscular Hgb Concent. 33.8 g/dL (32-36); Mean Platelet Volume 8.9 fL (7.5-11.0); Platelet Count 181 x10^3/uL (150-450); Red Blood Count 3.47 x10^6/uL (4.1-5.6); Red Cell Distribution Width 12.5 % (11.5-14.0); White Blood Count 7.4 x10^3/uL (4.0-10.5)
[2022-06-19 09:04] LABS: ANION GAP 8.6 MEQ/L (5-15); BLOOD UREA NITROGEN 9 mg/dL (9-20); CHLORIDE 105 mmol/L (98-107); Carbon Dioxide 30 mmol/L (22-30); Creatinine 1 0.69 mg/dL (0.66-1.25); EST GLOMERULAR FILTRATION RATE > 60.0 ML/MIN; Glucose 140 mg/dL (74-106); Potassium 3.7 mmol/L (3.5-5.1); SODIUM 139 mmol/L (137-145)
[2022-06-19] MEDS: Neurontin PO SCH (09:59)
[2022-06-19] MEDS: Toprol Xl 50 MG PO SCH (09:59)
[2022-06-19] MEDS ORDERED: NORTRIPTYLINE HCL PO SCH (10:00)
[2022-06-19] MEDS ORDERED: NORVASC 5 MG PO SCH (10:00)
[2022-06-19] MEDS: Hydromorphone 1 mg/ml Injection IV PRN (10:43)
[2022-06-19 11:42] VITALS: BP 194/85; PULSE 89; O2SAT 95
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
--- NOTE | 2022-06-19 17:48 | PCM.DS ---
Discharge Summary Date of Admission: 06/17/22 21:54 Admitting Physician: LUZMARIA ESCALERA Primary Care Provider: JOCELYNE FLORES Allergies Allergies carisoprodol [From Soma] Allergy (Verified 06/17/22 17:13) morphine Allergy (Verified 06/17/22 17:13) Hospital Summary - Hospital Course Hospital Course: 4late entry for 06/19/22 at 0830. Pt is a 56 yo male pt of Dr. Flores with HTM, DMII, and chronic lbp (s/p 5 surgeries) who was admitted through ER with L ankle fracture. He had surgery the next morning with Dr. Swartz, thank you, and now has an external fixator. Brett underwood has been getting PT and will be discharged to home today. His ankle xray showed fractures and displacement in several locations. He had an u/s of the leg which was neg for DVT. Arterial doppler on bilat LE was unremarkable (although not able to do all the vessels on the LLE). CT LLE with some gas bubbles, correlate clinically to r/o open fx. CT lumbar spine with some question of stenosis, but no acute findings. - Vitals & Intake/Output Vital Signs: Vital Signs Temperature 98.2 F 06/19/22 11:41 Pulse Rate 89 06/19/22 11:41 Respiratory Rate 16 06/19/22 11:41 Blood Pressure 194/85 06/19/22 11:41 O2 Sat by Pulse Oximetry 95 06/19/22 11:41 Intake & Output: Intake & Output 06/17/22 06/18/22 06/19/22 06/20/22 11:59 11:59 11:59 11:59 Intake Total 0 3668 Output Total 800 1600 Balance -800 2068 Weight 95.2 kg - Lab Result Diagrams: 06/19/22 07:20 06/19/22 07:20 Lab Results-Last 24 Hrs: Lab Results-Last 24 Hours 06/18/22 06/19/22 06/19/22 Range/Units 20:35 07:20 07:20 WBC 7.4 (4.0-10.5) x10^3/uL RBC 3.47 L (4.1-5.6) x10^6/uL Hgb 10.8 L (12.5-18.0) g/dL Hct 32.0 L (42-50) % MCV 92.2 (78-100) fL MCH 31.1 (26-32) pg MCHC 33.8 (32-36) g/dL RDW 12.5 (11.5-14.0) % Plt Count 181 (150-450) x10^3/uL MPV 8.9 (7.5-11.0) fL Sodium 139 (137-145) mmol/L Potassium 3.7 (3.5-5.1) mmol/L Chloride 105 (98-107) mmol/L Carbon Dioxide 30 (22-30) mmol/L Anion Gap 8.6 (5-15) MEQ/L BUN 9 (9-20) mg/dL Creatinine 0.69 (0.66-1.25) mg/dL Estimated GFR > 60.0 ML/MIN Glucose 140 H (74-106) mg/dL POC Glucometer 277 H (74 to 106) mg/dL Calcium 8.0 L (8.4-10.2) mg/dL 06/19/22 06/19/22 Range/Units 07:22 11:32 WBC (4.0-10.5) x10^3/uL RBC (4.1-5.6) x10^6/uL Hgb (12.5-18.0) g/dL Hct (42-50) % MCV (78-100) fL MCH (26-32) pg MCHC (32-36) g/dL RDW (11.5-14.0) % Plt Count (150-450) x10^3/uL MPV (7.5-11.0) fL Sodium (137-145) mmol/L Potassium (3.5-5.1) mmol/L Chloride (98-107) mmol/L Carbon Dioxide (22-30) mmol/L Anion Gap (5-15) MEQ/L BUN (9-20) mg/dL Creatinine (0.66-1.25) mg/dL Estimated GFR ML/MIN Glucose (74-106) mg/dL POC Glucometer 133 H 187 H (74 to 106) mg/dL Calcium (8.4-10.2) mg/dL Micro Results-Entire Visit: Accuchecks Date 06/19/22 Time 07:34 - Radiology Exams Ordered Rad Exams-Entire Visit: Radiology Procedures Category Date Time Status PABLITO/SEG PRESSURE UNILAT [US] Urgent Exams 06/18/22 15:44 Completed ANKLE (2V) Routine Exams 06/18/22 11:32 Completed ANKLE (3 VIEWS) Stat Exams 06/17/22 17:13 Completed ARTERIAL BILAT LOWER EXTREMITY [US] Urgent Exams 06/18/22 14:43 Completed FLUOROSCOPY UP TO 1 HR Routine Exams 06/18/22 11:32 Completed LOWER EXTREMITY WO CONTRAST [CT] Stat Exams 06/17/22 17:36 Completed LUMBAR SPINE W/O [CT] Stat Exams 06/17/22 18:39 Completed - Procedures and Test Procedures and Tests throughout Hospitalization: Therapy Orders & Screens 06/17/22 23:00 OT Screen per Nursing Assess ONCE Comment: Protocol Order Physician Instructions: Greater than 3 points order OT Admission Screening Reason For Exam: Triggered on Admission Diagnosis: fall, trimalleolar ankle fracture Open Wound/Cellutlitis/Pressure Ulcers: No Acute Fx/ORIF/Change in wt bearing status: Yes Severe MUSCULOSKELETAL pain: No ADL Dysfunction: No Acute CVA w/Hemiparesis/Hemiplegia: No Decreased Functional Mobility/Strength: No Sprain/Strain: No Acute Post-op Mobility Dysfunction: No Total Points: 5 PT Screen per Nursing Assess ONCE Comment: Protocol Order Physician Instructions: Greater than 3 points order PT Admission Screenin Reason For Exam: Triggered on Admission Diagnosis: fall, trimalleolar ankle fracture Open Wound/Cellutlitis/Pressure Ulcers: No Acute Fx/ORIF/Change in wt bearing status: Yes Severe MUSCULOSKELETAL pain: No ADL Dysfunction: No Acute CVA w/Hemiparesis/Hemiplegia: No Decreased Functional Mobility/Strength: No Sprain/Strain: No Acute Post-op Mobility Dysfunction: No Total Points: 5 06/18/22 12:31 PT Eval & Treat ( Order) ONCE Reason for Eval:: post op- assess for safety with use of knee scooter Diagnosis: fall, trimalleolar ankle fracture 06/18/22 14:25 Incentive Spirometry UD Comment: every 2 hours while awake Diagnosis: fall, trimalleolar ankle fracture 06/18/22 18:04 Oxygen Nasal Cannula 2 lpm Comment: Diagnosis: fall, trimalleolar ankle fracture 06/19/22 09:47 OT Eval and Treat ( Order) ROUTINE Comment: Consulting Provider: Physician Instructions: Reason For Exam: Diagnosis: fall, trimalleolar ankle fracture Discharge Exam General Appearance: no apparent distress, alert Neurologic Exam: oriented x 3, cooperative Eye Exam: eyes nml inspection Ears, Nose, Throat Exam: moist mucous membranes Neck Exam: normal inspection Respiratory Exam: normal breath sounds, lungs clear, No crackles/rales, No rhon chi, No wheezing Cardiovascular Exam: regular rate/rhythm, normal heart sounds, No murmur Gastrointestinal/Abdomen Exam: soft, normal bowel sounds, No mass, No guarding, No rebound Extremity Exam: other (LLE splinted with external fixator in place) Skin Exam: normal color, warm, dry, No rash Final Diagnosis/Problem List - Final Discharge Diagnosis/Problem (1) Fracture dislocation of left ankle Status: Acute Assessment & Plan: Home today per Dr. Swartz. Code(s): S82.892A - OTH FRACTURE OF LEFT LOWER LEG, INIT FOR CLOS FX (2) Diabetes mellitus type II, non insulin dependent Status: Chronic Assessment & Plan: F/u with Dr. Flores. Code(s): E11.9 - TYPE 2 DIABETES MELLITUS WITHOUT COMPLICATIONS (3) HTN (hypertension) Status: Chronic Assessment & Plan: Scattered elevated BPs likely related to pain. Code(s): I10 - ESSENTIAL (PRIMARY) HYPERTENSION - Discharge Disposition: Home, Self-Care Condition: Stable Prescriptions: New Levofloxacin [Levofloxacin 500 MG Tablet] 500 mg PO DAILY #10 tablet Continue Orphenadrine Citrate 100 mg [Norflex 100 MG Tablet] 1 ea HS Metoprolol Succinate 50 mg [Toprol Xl 50 MG] 50 mg PO BID Nortriptyline HCl [Pamelor] 50 mg PO DAILY Gabapentin 800 mg PO QID Metformin HCl 500 mg [Glucophage 500 MG] 500 mg PO BIDWM Amlodipine Besylate 5 mg [Norvasc 5 mg] 5 mg PO DAILY Lovastatin [Altoprev] 40 mg PO HS Instructions: Ankle Fracture, Fracture (DC), Pin Care Additional Instructions: NON-WEIGHT BEARING TO THE LEFT LEG USE WALKER FOR AMBULATION Follow up with: SYL PATEL DPM [ACTIVE STAFF] - 06/25/22 9:00 am JOCELYNE FLORES MD [Primary Care Provider] - Call for Appointment (FOLLOW-UP NEEDED ) Forms: Discharge Instructions
--- NOTE | 2022-06-20 08:12 | OP ---
SURGERY DATE/TIME: 06/18/2022 1224 PREOPERATIVE DIAGNOSES: 1) High-energy trauma left ankle. 2) Left ankle pain. 3) Trimalleolar fracture. 4) Diabetes mellitus. POSTOPERATIVE DIAGNOSES: 1) High-energy trauma left ankle. 2) Left ankle pain. 3) Trimalleolar fracture. 4) Diabetes mellitus. PROCEDURE: Application of external fixator multiplanar left lower extremity. SURGEON: Maxime Waters DPM. INSIDE [employer] SALES CONSULTANT: None. ANESTHESIA: General. HEMOSTASIS: Pressure dressing. ESTIMATED BLOOD LOSS: Less than 5 cc. MATERIALS: Marlon external fixator with fixed end. INJECTABLES: See anesthesia report for details. INDICATION FOR SURGERY: Bam is a very pleasant 56-year-old male who presented to the emergency department on Thursday evening after having fallen off of a ladder resulting in a significant amount of ankle pain. The patient presented to the emergency room and x-rays were taken demonstrating a trimalleolar fracture with significant comminution of the fibula. At that time CT scan was obtained and the patient was admitted and referred to my service. The patient was assessed in the morning and had fracture blisters present and a very severe comminuted fracture to the fibula. Decision was to proceed with a staged procedure at this time to allow for the fracture blisters to heal prior to definitive operative intervention and spanning the fracture and allow for ligamentotaxis of the fibula in this space to restore the length. The patient understands all risks, complications and benefits of surgical intervention at this time including but not limited to delayed skin healing, nonskin healing, infection, hematoma, seroma, possibility of delayed bone healing, nonbone healing and the possibility of failure of surgical intervention. If that as the case and the patient would like to proceed there is a possibility of returning to the OR for an additional procedure in this case. The patient understands he will undergo definitive fixation once his skin has stabilized. No guarantees were provided as to the outcome. Plenty of time was allowed for the patient and his family to ask questions which were answered to their apparent satisfaction. It is with that we proceeded with surgical intervention. DESCRIPTION OF PROCEDURE AND FINDINGS: The patient is brought into the OR and placed on the OR table in the supine position. At this time general anesthesia was administered until the patient was sedated. At this time under fluoroscopic guidance, the anterior tibial crest was identified. A stab incision was made and a pin was placed perpendicular to the longitudinal axis of the bone just lateral to the anterior tibial crest. The same process was carried out for a pin just distal to this through a guide. At this time, a calcaneal pin was placed at the safe zone of the calcaneal tuber making sure to make this pin as perpendicular as possible in the calcaneus. At this time pin-to-bars were connected and a 500 mm bar was attached to both sides. These were tightened at the proximal aspect and the ankle was distracted while the distal pin-to-bars were tightened. At this time in order for patient comfort, a kickstand U-bar was placed at the posterior was placed with bar-to-bar fixation this was tightened. A dressing of iodine soaked Xeroform around the pin site was placed. Drains, sponges were then placed around the pin sites. Dressing consisting of Betadine, Adaptic, 4x4, Kerlix and MALU was then applied over the fracture blisters and compressed. Following this, the patient was reversed from anesthesia and returned to the postoperative anesthesia care unit with vital signs stable and vascular status intact. The patient handled the anesthesia as well as the procedure without significant complication. Postoperative orders as indicated in the patient's discharge chart.
== END 2022-06-19 12:20 | disposition home or self-care (01) ==
LOC: ED 17:08 → MED SURG 21:54
PROVIDERS: ADMIT Family Medicine; ATTEND Family Medicine
DX: S82.852A Displaced trimalleolar fracture of left lower leg, initial encounter for closed fracture (principal); M25.572 Pain in left ankle and joints of left foot; E11.9 Type 2 diabetes mellitus without complications; I10 Essential (primary) hypertension; M79.662 Pain in left lower leg; W11.XXXA Fall on and from ladder, initial encounter; Z79.899 Other long term (current) drug therapy; Z20.828 Contact with and (suspected) exposure to other viral communicable diseases
CPT/HCPCS: 01480; 0241U; 20692; 29125; 36415; 64450; 72131; 73600; 73610; 73700; 76000; 76937; 76942; 80048; 80053; 82947; 85025; 85027; 93268; 93922; 93925; 94762; 96374; 96375; 97110; 97161; 97165; 97530; 99140; 99285; C1713; G0378; J0330; J0690; J1100; J1170; J1885; J2250; J2370; J2405; J2704; J2795; J3010; A9270-GY

== ENCOUNTER 2022-07-01 09:54 | Day surgery (SDC) | payer MEDICARE ==
[2022-07-01] MEDS ORDERED: CEFAZOLIN 2 GM-D5W BAG** 2 GM/50 ML ML IV SCH (10:30)
[2022-07-01] MEDS ORDERED: Lactated Ringers 1,000 ML IV SCH (10:30)
[2022-07-01] MEDS ORDERED: Xylocaine 1% Vial 30 ML PF IJ ONE (10:43)
[2022-07-01] MEDS ORDERED: Versed 2 MG/2 ML Injection IV PRN (10:46)
[2022-07-01] MEDS ORDERED: OFIRMEV 1,000 MG/100 ML ML IV ONE (10:47)
[2022-07-01] MEDS ORDERED: SUBLIMAZE 100 MCG/2 ML ONE ×2 (10:53→16:08)
[2022-07-01] MEDS ORDERED: DIPRIVAN 200 MG/20 ML IV ONE ×2 (10:53→16:36)
[2022-07-01] MEDS ORDERED: Marcaine 0.5%/Epinephrine 10 ML ONE (10:53)
[2022-07-01] MEDS ORDERED: Xylocaine-Mpf 2% 5 Ml Vial ONE (10:53)
[2022-07-01] MEDS ORDERED: BRIDION 200MG/2ML IV ONE (10:53)
[2022-07-01] MEDS ORDERED: Zofran 4 MG/2 ML VIAL ONE (10:53)
[2022-07-01] MEDS ORDERED: Zemuron 100 MG/10 ML ONE (10:53)
[2022-07-01] MEDS ORDERED: TORAdol 30 mg Injection ONE (10:53)
[2022-07-01] MEDS ORDERED: Decadron 4 MG INJ ONE ×2 (10:53)
[2022-07-01] MEDS ORDERED: celeBREX 100 MG PO SCH (11:00)
[2022-07-01] MEDS ORDERED: Lactated Ringers 1,000 ML IV ONE ×2 (11:54→13:46)
[2022-07-01] MEDS ORDERED: PHENYLEPHRINE HCL ONE (12:34)
--- NOTE | 2022-07-01 15:33 | XRAY ---
Indication: Left ankle external fixator removal. Intraoperative fluoroscopy provided for 8 minute 43 seconds. 31 digital spot images submitted for interpretation ultimately demonstrates removal of external fixator. New lateral fixation plate/transverse screws fixates fibula shaft fracture. 2 new screws fixates medial malleolus fracture. Fractures are improved in apposition/alignment. Correlate with intraoperative findings/report.
[2022-07-01] MEDS ORDERED: Hydromorphone 1 mg/ml Injection ONE (16:12)
[2022-07-01 17:35] VITALS: O2SAT 92
[2022-07-01 17:44] VITALS: BP 131/93; PULSE 85
--- NOTE | 2022-07-02 08:37 | OP ---
SURGERY DATE/TIME: 07/01/2022 1143 PREOPERATIVE DIAGNOSES: 1) Left trimalleolar fracture closed. 2) Left ankle pain. 3) Retained external fixator. POSTOPERATIVE DIAGNOSES: 1) Left trimalleolar fracture closed. 2) Left ankle pain. 3) Retained external fixator. PROCEDURES: 1) Removal of internal fixator. 2) Open reduction internal fixation of left ankle trimalleolar fracture. SURGEON: Maxime Waters DPM. COUNTY [employer] DEMONSTRATION AGENT: None. ANESTHESIA: General plus preoperative popliteal and adductor canal block. See anesthesia report for details. HEMOSTASIS: Thigh tourniquet set to 300 mm of Mercury for approximately 120 total tourniquet minutes. ESTIMATED BLOOD LOSS: Less than 50 cc. MATERIALS: Marlon ALPS fibula 10 hole left anatomic plate with two - 3.5 x 50 Syndesmotic screws as well as two - 4.0 x 150 and 170 mm partially threaded screw for the medial malleolus. INJECTABLES: See anesthesia report for details. INDICATION FOR SURGERY: The patient is well known to my service for a trimalleolar fracture to the left ankle with significant shortening of the fibula. He recently underwent application of an external fixator secondary to fracture blisters as well as severe shortening of the fibula and comminution of the fracture. The patient up until this time has had healing of the fracture blisters and they have resolved at this time. The patient was advised he may proceed at this time with open reduction internal fixation of the left ankle fracture and proceed with removal of external fixator. All risks, benefits and complications of the procedure were discussed with the patient prior surgical intervention which he voiced his understanding and wished to proceed. Plenty of time was allowed for the patient to ask questions which were answered to his apparent satisfaction. No guarantees were provided as to the outcome. DESCRIPTION OF PROCEDURE AND FINDINGS: The patient is brought into the OR and placed on the OR table in the supine position. At this time, general anesthesia was administered until the patient was sedated. Prior to bringing him into the room, a perioperative popliteal and adductor canal block was provided to the patient. A well-padded thigh tourniquet was applied to the left thigh and the tourniquet was set to 300 mm of Mercury. At this time, the left lower extremity was prepped and draped in the typical sterile fashion and lowered onto the surgical field. At this time, attention was directed to the external fixator where the bar at the lateral aspect of the leg was removed so as to gain exposure to the lateral aspect of the leg. Under fluoroscopic guidance landmarks were identified. The distal aspect of the fibula was identified and an Esmarch was utilized to exsanguinate the leg. The tourniquet was inflated to 300 mm of Mercury. An incision was placed full thickness at the distal tip of the lateral malleolus approximately 6 cm in length. At this time an additional 6 cm incision was made at the proximal aspect of the leg. Careful dissection was carried down at this level to the level of the fibula. A 10-hole ALPS plate was introduced into the distal incision site and carried over the periosteum of the bone using the plate to guide the way through the proximal aspect of the fibular fracture. At this time distal locking screws were introduced in order to gain traction on the plate. At this time distraction was carried out and the length was deemed to be adequate under fluoroscopic guidance with the foot rotated into 15 degrees of internal rotation in the mortise views. At this time the decision was made to proceed with fixation of the medial malleolar fracture to act as a constraint to the talus and prevent it from subluxing medially. Two - 4.0 mm screws in diversion orientation was performed this was checked under fluoroscopic guidance and the anterior lip of the medial malleolar fracture was directly visualized with compression through this site and congruity. The remaining portion of the external fixator was then removed from the left lower extremity removing the pins from the calcaneus as well as the tibia at this time. At this time attention was directed back to the fibular fracture where distraction was pulled on the distal end of the fibula to bring it out to length while syndesmotic screws were introduced in an orientation approximately 15 degrees from lateral to anterior this was carried out twice and an additional proximal screw. Attention was directed to the proximal aspect of the plate where the fibula was identified and three - 18 mm nonlocking screws were introduced into the plate spanning the fracture site and comminution distally. At this time fluoroscopy was utilized to identify on multiple views adequate reduction of the fracture. Posterior malleolar fracture was deemed unnecessary to fixate due to its small size. Following this, the tourniquet was let down. Copious amounts of sterile saline were utilized to flush the surgical site. Following this, the 2-0 Vicryl suture was utilized to coapt the subcutaneous skin edges and skin johana were utilized to coapt the incision sites in an everted-type fashion. The ten holes from the external fixator were curetted and flushed with copious amounts of sterile saline. 2-0 Nylon was then utilized to coapt the site. A dressing consisting of Betadine, Adaptic 4x4, Kerlix and a well-padded posterior splint with Sugar-Tong was then applied to the patient's left lower extremity with the foot orthogonal relative to longitudinal axis of the leg. The patient was then reversed from anesthesia and returned to the postoperative anesthesia care unit with vital signs stable and vascular status intact. The patient handled the anesthesia as well as the procedure without significant complication. Postoperative orders as indicated in the patient's discharge chart.
--- NOTE | 2022-07-02 09:55 | XRAY ---
8 minutes and 43 seconds of fluoroscopy was used in surgery for a left ankle external fixator removal and open reduction internal fixation.
== END 2022-07-01 17:55 | disposition home or self-care (01) ==
LOC: SDC 09:54
PROVIDERS: ATTEND Podiatrist Foot & Ankle Surgery
DX: S82.852A Displaced trimalleolar fracture of left lower leg, initial encounter for closed fracture (principal); E11.9 Type 2 diabetes mellitus without complications; M25.572 Pain in left ankle and joints of left foot; Z47.2 Encounter for removal of internal fixation device
CPT/HCPCS: 20680; 27822; 73610; 76000; 76937; 82947; C1713; J0690; J1100; J1170; J1885; J2001; J2250; J2370; J2405; J2704; J3010; A9270-GY